=== PATIENT | female | born 1960 | race Caucasian/White ===

== ENCOUNTER → 2019-09-26 | Outpatient (CLI) | payer OTHER ==
--- NOTE | 2019-09-27 05:20 | REP ---
Clinical: Lung screening. History smoking. Comparison: None Technique: Axial low-dose noncontrast images from the thoracic inlet to the upper abdomen using lung screening technique. Findings: The lung mcqueen are well-aerated. There is a 2.3 cm non solid density along the posterior aspect of the right upper lobe (image 36) along with few scattered subpleural nodules up to 4 mm. No pleural effusion/reaction or pneumothorax. Tracheobronchial tree is patent. Mediastinum demonstrates mild atherosclerotic changes of the coronary arteries without cardiomegaly. Impression: Lung-RADS category III. No prior examinations are available for comparison and 6-month follow-up examination is recommended. Electronically Signed by Slim King MD 09/27/2019 05:12 A
== END ==
LOC: M RAD 09:33
PROVIDERS: ATTEND Physician Assistant
DX: Z87.891 Personal history of nicotine dependence (principal)

== ENCOUNTER → 2020-01-11 | Outpatient (CLI) | payer OTHER ==
--- NOTE | 2020-01-17 08:28 | REP ---
Clinical: Follow up abnormal findings. Comparison: 09/26/2019. Technique: Axial noncontrast images from the thoracic inlet to the upper abdomen with coronal and sagittal re-formations. Findings: The bilateral lung mcqueen are relatively well aerated and clear. No consolidation, new significant nodule, or mass lesion is appreciated. The previously noted 2.4 cm non solid density in the posterior right upper lobe has resolved. Previously identified small scattered nodules up to 4 mm appear relatively stable and unchanged. No effusion. No pneumothorax. Mildly prominent mediastinal lymph nodes remain unchanged and nonspecific. Stable atherosclerotic changes to the thoracic aorta and coronary arteries noted without aortic aneurysm or cardiomegaly. No obvious pericardial effusion. Musculoskeletal structures are intact. Stable 2.3 cm left adrenal adenoma. Impression: 1. Previously noted 2.4 cm non solid density in the posterior right lung has resolved. No new significant mediastinal or pleuroparenchymal process appreciated. 2. Mildly prominent mediastinal lymph nodes remain stable. 3. Few subtle small stable noncalcified nodules up to 4 mm remain unchanged. Management recommendations include annual low-dose CT follow-up evaluation. 4. 2.3 cm left adrenal adenoma. Electronically Signed by Slim King MD 01/17/2020 08:21 A
== END ==
LOC: M RAD 10:31
PROVIDERS: ATTEND Physician Assistant
DX: R91.8 Other nonspecific abnormal finding of lung field (principal); I70.0 Atherosclerosis of aorta; I25.10 Atherosclerotic heart disease of native coronary artery without angina pectoris; D35.02 Benign neoplasm of left adrenal gland

== ENCOUNTER → 2020-08-21 | Outpatient (CLI) | payer OTHER ==
--- NOTE | 2020-08-23 14:59 | SLEEPCENT ---
NOCTURNAL POLYSOMNOGRAPHY DATE: 08/21/2020 ORDERED BY: SULTANA DANIELS Nocturnal polysomnography was performed for the titration of pressure therapy in this patient with obstructive sleep apnea syndrome. For testing a [employer]Med Mirage FX standard mask was used, 4 cm of water pressure were applied to the circuit, and the lights were extinguished. 8 hours and 47 minutes of data were reviewed. There were 448.5 minutes of sleep identified. Sleep latency was prolonged at 41.5 minutes. REM latency was prolonged at 268 minutes. Sleep architecture improved late in the study and there were two REM cycles possible REM rebound seen. Overall sleep efficiency was 85.9%. The electrocardiogram showed a sinus rhythm with an average heart rate of 68 beats per minute. EEG showed fairly normal waveforms for wake and sleep. Respiratory events were reasonably well palliated with CPAP at a pressure of 13 cm, with which pressure the patient achieved REM sleep in the supine position without respiratory event or oxygen desaturations. There was some limb activity appreciated. The limb movement arousal index was 12.8. IMPRESSION: Obstructive sleep apnea syndrome (G47.33). RECOMMENDATION: Nightly use of pressure therapy 13 cm of water. Darlene Wong
== END ==
LOC: M SLEEP 20:00
PROVIDERS: ATTEND Physician Assistant
DX: G47.33 Obstructive sleep apnea (adult) (pediatric) (principal)